=== PATIENT | female | born 1980 | race Caucasian/White ===

== ENCOUNTER 2018-09-05 09:22 | Inpatient (IN) | payer BC ==
[2018-09-05 11:20] VITALS: BMI 22.3
--- NOTE | 2018-09-05 12:05 | HP ---
CIWA Score Nausea/Vomitin Muscle Tremors: 4-Moderate,w/Arms Extend Anxiety: 4-Mod. Anxious/Guarded Agitation: 1-Slight > Activity Paroxysmal Sweats: 1-Minimal Palms Moist Orientation: 1-Uncertain about Date Tacttile Disturbances: 1-Very Mild Itch/Numbness Auditory Disturbances: 0-None Visual Disturbances: 1-Very Mild Sensitivity Headache: 2-Mild CIWA-Ar Total Score: 17 - Admission Criteria OASAS Guidelines: Admission for Medically Managed Detox: Requires at least one of the followin. CIWA greater than 12 2. Seizures within the past 24 hours 3. Delirium tremens within the past 24 hours 4. Hallucinations within the past 24 hours 5. Acute intervention needed for co occurring medical disorder 6. Acute intervention needed for co occurring psychiatric disorder 7. Severe withdrawal that cannot be handled at a lower level of care (continued vomiting, continued diarrhea, abnormal vital signs) requiring intravenous medication and/or fluids 8. Patient presents the following: CIWA greater than 12 Admission Criteria Met: Admission criteria met Admission ROS BHS - HPI Chief Complaint: I want to stop drinking, I'm just tired of it Allergies/Adverse Reactions: Allergies Allergy/AdvReac Type Severity Reaction Status Date / Time No Known Allergies Allergy Verified 09/05/18 10:57 History of Present Illness: 38 yo woman here for detox from alcohol - patient went to [facility] yesterday to detox - she was referred here. While at [facility] she fell when she got up to use the bathroom and she hit her head - she states she had a CT scan there and was told it was fine - small bruise and swelling over left forehead noted - no blurry vision. Patient with history of three detox admissions elsewhere, first time here. She was in detox a year ago at [facility] and then went in 8 months of rehab - came out in May 2018 - started to work and relapsed in June 2018. States she was going to 12 step meetings but relapsed anyway - history of getting Vivitrol injections but she 'just stopped' - interested in restarting it when she is discharged. No seizures but has had syncopal episodes and admits to drinking starting in the morning. Patient with history alcohol related pancreatitis. She also had diabetes which she was told is related to the alcohol use. Exam Limitations: Clinical Condition - Ebola screening Have you traveled outside of the country in the last 21 days: No (N) Have you had contact with anyone from an Ebola affected area: No Do you have a fever: No - Review of Systems Constitutional: Loss of Appetite, Malaise, Changes in sleep, Weakness EENT: reports: No Symptoms Reported Respiratory: reports: No Symptoms reported Cardiac: reports: No Symptoms Reported GI: reports: Nausea, Poor Appetite, Abdominal cramping : reports: Frequency Musculoskeletal: reports: Muscle Pain Integumentary: reports: Bruising, Dryness Neuro: reports: Headache, Tingling, Tremors Endocrine: reports: No Symptoms Reported Hematology: reports: No Symptoms Reported Psychiatric: reports: Mood/Affect Appropiate, Anxious Other Systems: Reviewed and Negative Patient History - Patient Medical History Hx Anemia: No Hx Asthma: No Hx Chronic Obstructive Pulmonary Disease (COPD): No Hx Cancer: No Hx Cardiac Disorders: No Hx Hypertension: No Hx Hypercholesterolemia: No Hx Pacemaker: No HX Cerebrovascular Accident: No Hx Seizures: Yes (10 years ago - alcohol related) Hx Diabetes: No (insulin dependent) Hx Gastrointestinal Disorders: No (pancreatitis - chronic - alcoholic) Hx Liver Disease: No Hx Genitourinary Disorders: No Hx Sexually Transmitted Disorders: No Hx Renal Disease (ESRD): No Hx Thyroid Disease: No Hx Human Immunodeficiency Virus (HIV): No Hx Hepatitis C: No Hx Depression: Yes (with anxiety, on meds, never hospitalized) Hx Suicide Attempt: No (denies) Hx Bipolar Disorder: No Hx Schizophrenia: No - Patient Surgical History Past Surgical History: No - PPD History Previous Implant?: Yes Documented Results: Negative w/o proof Implanted On Prior R Admission?: No PPD to be Administered?: Yes - Reproductive History Patient is a Female of Child Bearing Age (11 -55 yrs old): Yes Patient : No - Smoking Cessation Smoking history: Current some day smoker (one cigarette every two days) Have you smoked in the past 12 months: Yes Hx Chewing Tobacco Use: No Initiated information on smoking cessation: Yes 'Breaking Loose' booklet given: 09/05/18 (give on floor) - Substance & Tx. History Hx Alcohol Use: Yes Hx Substance Use: No Substance Use Type: Alcohol Hx Substance Use Treatment: Yes (detox, rehab) - Substances abused Alcohol Substance route: Oral Frequency: Daily Amount used: 1 pint of vodka Age of first use: 12 Date of last use: 09/04/18 Family Disease History - Family Disease History Family Disease History: Other: Father (living, htn), Mother (living, hx breast cancer), Sister (two - living ) Admission Physical Exam [facility] - Vital Signs Vital Signs: Vital Signs - 24 hr 09/05/18 09/05/18 11:13 11:30 Temperature 98.2 F 98.2 F Pulse Rate 108 H 108 H Respiratory 18 18 Rate Blood Pressure 141/95 141/95 - Physical General Appearance: Yes: Nourished, Appropriately Dressed, Moderate Distress, Thin, Tremorous, Anxious HEENTM: Yes: EOMI, Hearing grossly Normal, Normocephalic, Normal Voice, Pharynx Normal, Other (tongue coated; left forehead slight swelling and echymosis) Respiratory: Yes: Normal Breath Sounds, No Respiratory Distress Neck: Yes: No masses,lesions,Nodules, Supple Breast: Yes: Breast Exam Deferred Cardiology: Yes: Regular Rhythm, Regular Rate Abdominal: Yes: Flat, Soft Genitourinary: Yes: Frequency Back: Yes: Normal Inspection Musculoskeletal: Yes: full range of Motion, Muscle Pain, Other (left knee with two scabs from fall 'a few days ago, I don't remember when') Extremities: Yes: Normal Range of Motion, Tremors, Other (both hands with mild puffiness and erythema - she states this is related to the IV attempts while in the ED) Neurological: Yes: Alert, Normal Mood/Affect, Normal Response, Numbness, Other ( teary, anxious) Integumentary: Yes: Dry, Warm, Other (echymosis left arm - several areas of bruising noted - she states this is related to them trying to get blood from her in ED) Lymphatic: Yes: Within Normal Limits - Diagnostic (1) Alcohol dependence with uncomplicated withdrawal Current Visit: Yes Status: Chronic (2) Minor head trauma Current Visit: Yes Status: Chronic (3) History of chronic pancreatitis Current Visit: Yes Status: Chronic (4) IDDM (insulin dependent diabetes mellitus) Current Visit: Yes Status: Chronic (5) Knee abrasion Current Visit: Yes Status: Acute Qualifiers: Encounter type: subsequent encounter Laterality: left Qualified Code(s): S80.212D - Abrasion, left knee, subsequent encounter Cleared for Admission [facility] - Detox or Rehab [facility] Level of Care: Medically Managed Detox Regimen/Protocol: Librium Breathalyzer - Breathalyzer Breathalyzer: 0.142 Urine Drug Screen - Test Device Lot number: [id number] Expiration date: 05/14/20 - Control Is test valid?: Yes - Results Drug screen NEGATIVE: No Urine drug screen results: BZO-Benzodiazepines Inpatient Rehab Admission - Rehab Decision to Admit Inpatient rehab admission?: No
[2018-09-05] MEDS ORDERED: MENTHOL/PHENOL 1 EACH UD MM PRN (12:12)
[2018-09-05] MEDS ORDERED: MAGNESIUM HYDROX 2400MG/30ML ORAL SUSPENSION 30 ML CUP PO PRN (12:12)
[2018-09-05] MEDS ORDERED: MAGNESIUM CITRATE 300 ML BOTTLE PO PRN (12:12)
[2018-09-05] MEDS ORDERED: ACETAMINOPHEN 325 MG TABLET (FP) PO PRN (12:12)
[2018-09-05] MEDS ORDERED: ONDANSETRON *ODT* 4 MG TABLET SL PRN (12:12)
[2018-09-05] MEDS ORDERED: IBUPROFEN 400 MG TABLET (FP) PO PRN (12:12)
[2018-09-05] MEDS ORDERED: MAG HYDROX/AL HYDROX/SIMETH 30 ML UNIT-DOSE CUP PO PRN (12:12)
[2018-09-05] MEDS ORDERED: chlordiazePOXIDE HCL 25 MG CAPSULE PO ONE (12:30)
[2018-09-05] MEDS: LIPASE/PROTEASE/AMYLASE 6,000 UNIT CAPSULE PO SCH ×2 (15:11→20:31)
[2018-09-05] MEDS: INSULIN (NOVOLOG MIX 70/30) 100 UNITS/ML MDV SQ SCH ×2 (17:16→22:30)
[2018-09-05] MEDS: chlordiazePOXIDE HCL 25 MG CAPSULE PO SCH ×2 (17:16→22:30)
[2018-09-05] MEDS: hydrOXYzine PAMOATE 25 MG CAPSULE (FP) PO PRN (18:37)
[2018-09-05 19:17] LABS: URINE APPEARANCE CLEAR; URINE BILIRUBIN NEGATIVE (NEGATIVE); URINE COLOR YELLOW; URINE GLUCOSE (UA) 3+ (NEGATIVE); URINE KETONE NEGATIVE (NEGATIVE); URINE LEUK ESTERASE NEGATIVE (NEGATIVE); URINE NITRITE NEGATIVE (NEGATIVE); URINE PROTEIN NEGATIVE (NEGATIVE); URINE UROBILINOGEN 0.2 mg/dL (0.2-1.0)
[2018-09-05] MEDS: chlordiazePOXIDE HCL 25 MG CAPSULE PO PRN (19:36)
[2018-09-05] MEDS: THIAMINE HCL 100 MG TABLET (FP) PO SCH (22:30)
[2018-09-05] MEDS: BACITRACIN 0.9 GM PACKET TP SCH (22:30)
[2018-09-05] MEDS: MELATONIN 5 MG TABLETS PO PRN (22:31)
[2018-09-06] MEDS: chlordiazePOXIDE HCL 25 MG CAPSULE PO SCH ×4 (05:52→22:03)
[2018-09-06] MEDS: METHOCARBAMOL 500 MG TABLET PO PRN ×2 (06:53→20:54)
[2018-09-06] MEDS ORDERED: INSULIN (NOVOLOG MIX 70/30) 100 UNITS/ML MDV SQ SCH (07:00)
[2018-09-06] MEDS: LIPASE/PROTEASE/AMYLASE 6,000 UNIT CAPSULE PO SCH ×3 (07:31→16:44)
[2018-09-06] MEDS: INSULIN (NOVOLOG MIX 70/30) 100 UNITS/ML MDV SQ SCH ×3 (07:33→16:46)
--- NOTE | 2018-09-06 09:42 | CONSULT ---
[facility] Psychiatric Consult - Data Date of interview: 09/06/18 Admission source: Admitted as a transfer from [facility] Identifying data: 38 y/o female single, childess, domiciled, unemployed SSI recipient. This is her first Detox admission to [facility] Substance Abuse History: History of alcohol abuse and 2 prior Detox admissions @ [facility], [place] and most recent 2 weeks ago @ [facility]. 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 Medical History: Patient has a amall bruise and swollwn left sided forehead secondary to a fall in [facility]; bathroom last night and was medically cleared. Medical history of IDDM. Chronic pancreatitis secondary to alcohol Psychiatric History: Patient reported a history of depression following the lost of her fiance due to chronic medical illness. She complains of low mood, insomnia and fair appetite and occasional anxiety. She has no prior psychiatric hospitalization and maintained on Effexor, Wellbutrin and Trazodone Physical/Sexual Abuse/Trauma History: Denied Mental Status Exam - Mental Status Exam Alert and Oriented to: Time, Place, Person Cognitive Function: Grossly Intact Patient Appearance: Well Groomed Mood: Sad Affect: Appropriate Patient Behavior: Cooperative Speech Pattern: Clear Voice Loudness: Normal Thought Process: Intact Hallucinations: None Suicidal Ideation: None Homicidal Ideation: None Sleep: Poorly Appetite: Fair Muscle strength/Tone: Normal Gait/Station: Normal Psychiatric Findings - Problem List ([place] 1, 2,3) (1) Depression Current Visit: Yes Status: Acute (2) Anxiety Current Visit: Yes Status: Acute (3) Alcohol dependence with uncomplicated withdrawal Current Visit: Yes Status: Chronic (4) History of chronic pancreatitis Current Visit: Yes Status: Chronic (5) IDDM (insulin dependent diabetes mellitus) Current Visit: Yes Status: Chronic - Initial Treatment Plan Initial Treatment Plan: Continue Detox treament. Psychoeducationn. Bladimir tyler. Trazodone 100 mg po q hs
[2018-09-06] MEDS: PRENATAL VITAMINS W/ FOLIC ACID TABLET (FP) PO SCH (10:28)
[2018-09-06 10:43] LABS: HEMATOCRIT 36.2 % (32.4-45.2); HEMOGLOBIN 12.3 GM/dL (10.7-15.3); MCH 31.3 pg (25.7-33.7); MCHC 34.1 g/dl (32.0-36.0); MEAN CELL VOLUME 91.8 fl (80-96); RBC 3.94 M/mm3 (3.60-5.2); RDW 14.3 % (11.6-15.6); WHITE BLOOD COUNT 5.2 K/mm3 (4.0-10.0)
[2018-09-06 10:48] LABS: ALBUMIN 3.5 g/dl (3.4-5.0); BILIRUBIN,TOTAL 0.9 mg/dL (0.2-1); CALCIUM 8.6 mg/dL (8.5-10.1); CREATININE 0.5 mg/dL (0.55-1.3); POTASSIUM 3.8 mmol/L (3.5-5.1); TOT PROT 6.8 g/dl (6.4-8.2)
[2018-09-06] MEDS: BACITRACIN 0.9 GM PACKET TP SCH ×2 (11:46→22:03)
--- NOTE | 2018-09-06 12:13 | PN ---
S CIWA - CIWA Score Nausea/Vomitin-Mild Nausea/No Vomiting Muscle Tremors: 3 Anxiety: 2 Agitation: 2 Paroxysmal Sweats: No Perspiration Orientation: 0-Oriented Tacttile Disturbances: 0-None Auditory Disturbances: 0-None Visual Disturbances: 0-None Headache: 1-Very Mild CIWA-Ar Total Score: 9 S Progress Note (SOAP) Subjective: ANXIOUS, SHAKY, POOR SLEEP Objective: 09/06/18 12:12 Laboratory Tests 09/05/18 09/05/18 09/05/18 12:16 15:41 16:29 WBC RBC Hgb Hct MCV MCH MCHC RDW MPV Sodium Potassium Chloride Carbon Dioxide Anion Gap BUN Creatinine Est GFR (CKD-EPI)AfAm Est GFR (CKD-EPI)NonAf POC Glucometer 289 336 Random Glucose Calcium Total Bilirubin AST ALT Alkaline Phosphatase Total Protein Albumin Lipase Urine Color Yellow Urine Appearance Clear Urine pH 6.0 Ur Specific [place] 1.033 Urine Protein Negative Urine Glucose (UA) 3+ H Urine Ketones Negative Urine Blood Negative Urine Nitrite Negative Urine Bilirubin Negative Urine Urobilinogen 0.2 Ur Leukocyte Esterase Negative 09/05/18 09/06/18 09/06/18 20:55 05:54 08:00 WBC 5.2 RBC 3.94 Hgb 12.3 Hct 36.2 MCV 91.8 MCH 31.3 MCHC 34.1 RDW 14.3 MPV 10.0 Sodium Potassium Chloride Carbon Dioxide Anion Gap BUN Creatinine Est GFR (CKD-EPI)AfAm Est GFR (CKD-EPI)NonAf POC Glucometer 264 85 Random Glucose Calcium Total Bilirubin AST ALT Alkaline Phosphatase Total Protein Albumin Lipase Urine Color Urine Appearance Urine pH Ur Specific [place] Urine Protein Urine Glucose (UA) Urine Ketones Urine Blood Urine Nitrite Urine Bilirubin Urine Urobilinogen Ur Leukocyte Esterase 09/06/18 09/06/18 08:00 11:48 WBC RBC Hgb Hct MCV MCH MCHC RDW MPV Sodium 137 Potassium 3.8 Chloride 101 Carbon Dioxide 28 Anion Gap 9 BUN 7.0 Creatinine 0.5 L Est GFR (CKD-EPI)AfAm 140.31 Est GFR (CKD-EPI)NonAf 121.06 POC Glucometer 229 Random Glucose 125 H Calcium 8.6 Total Bilirubin 0.9 AST 32 ALT 36 Alkaline Phosphatase 80 Total Protein 6.8 Albumin 3.5 Lipase 57 L Urine Color Urine Appearance Urine pH Ur Specific [place] Urine Protein Urine Glucose (UA) Urine Ketones Urine Blood Urine Nitrite Urine Bilirubin Urine Urobilinogen Ur Leukocyte Esterase Vital Signs - 24 hr 09/05/18 09/05/18 09/05/18 13:00 13:30 14:00 Temperature Pulse Rate 96 H 102 H 106 H Respiratory 18 18 Rate Blood Pressure 09/05/18 09/05/18 09/05/18 14:10 14:30 15:00 Temperature 97 F L Pulse Rate 96 H 106 H 108 H Respiratory 18 18 18 Rate Blood Pressure 130/92 09/05/18 09/05/18 09/05/18 15:30 16:30 17:00 Temperature Pulse Rate 100 H 98 H 85 Respiratory 18 16 16 Rate Blood Pressure 09/05/18 09/05/18 09/05/18 17:30 18:00 18:30 Temperature 97.4 F L Pulse Rate 78 97 H 93 H Respiratory 16 16 16 Rate Blood Pressure 136/89 09/05/18 09/05/18 09/05/18 19:00 19:30 20:00 Temperature Pulse Rate 88 92 H 103 H Respiratory 16 16 16 Rate Blood Pressure 09/05/18 09/05/18 09/05/18 20:30 21:00 21:30 Temperature Pulse Rate 106 H 102 H 98 H Respiratory 16 16 16 Rate Blood Pressure 09/05/18 09/05/18 09/05/18 22:00 22:30 22:51 Temperature 97.3 F L Pulse Rate 100 H 96 H 106 H Respiratory 16 16 16 Rate Blood Pressure 138/88 09/05/18 09/05/18 09/06/18 23:00 23:30 00:00 Temperature Pulse Rate 88 90 87 Respiratory 16 16 16 Rate Blood Pressure 09/06/18 09/06/18 09/06/18 00:30 01:00 01:30 Temperature Pulse Rate 87 82 79 Respiratory 18 18 18 Rate Blood Pressure 09/06/18 09/06/18 09/06/18 02:00 02:30 03:00 Temperature Pulse Rate 73 70 90 Respiratory 18 18 18 Rate Blood Pressure 09/06/18 09/06/18 09/06/18 03:30 04:00 04:30 Temperature Pulse Rate 90 90 94 H Respiratory 18 18 18 Rate Blood Pressure 09/06/18 09/06/18 09/06/18 05:00 05:30 06:00 Temperature Pulse Rate 95 H 92 H 90 Respiratory 18 18 18 Rate Blood Pressure 09/06/18 09/06/18 09/06/18 06:30 06:47 07:00 Temperature 97.7 F Pulse Rate 65 65 87 Respiratory 18 18 18 Rate Blood Pressure 120/72 09/06/18 09/06/18 09/06/18 07:30 08:00 09:00 Temperature Pulse Rate 89 89 79 Respiratory 18 18 18 Rate Blood Pressure 09/06/18 09/06/18 09:30 09:35 Temperature 98.3 F Pulse Rate 82 79 Respiratory 18 18 Rate Blood Pressure 128/96 AMBULATING ALERT ORIENTED Assessment: 09/06/18 12:12 ACUTE WITHDRAWAL DM MODERATE CONTROL Plan: CONTINUE DETOX PROTOCOL CONTINUE GLYCEMIC MONITORING AND CONTROL
[2018-09-06 12:18] LABS: PLATELET COUNT 176 K/MM3 (134-434)
--- NOTE | 2018-09-06 13:00 | EKG ---
Test Reason : Blood Pressure : / mmHG Vent. Rate : 090 BPM Atrial Rate : 090 BPM P-R Int : 154 ms QRS Dur : 094 ms QT Int : 382 ms P-R-T Axes : 063 035 058 degrees QTc Int : 467 ms NORMAL SINUS RHYTHM INCOMPLETE RBBB NO PREVIOUS ECGS AVAILABLE Confirmed by GISSELL GIVENS MD ([id number]) on 09/06/2018 1:00:09 PM Referred By: Confirmed By:GISSELL GIVENS MD
[2018-09-06] MEDS: chlordiazePOXIDE HCL 25 MG CAPSULE PO PRN ×2 (15:49→19:30)
[2018-09-06] MEDS: BISMUTH SUBSALICYLATE 524 MG/30 ML UD PO PRN (19:22)
[2018-09-06] MEDS: traZODone HCL 50 MG TABLET (FP) PO SCH (22:03)
[2018-09-06] MEDS: THIAMINE HCL 100 MG TABLET (FP) PO SCH (22:03)
[2018-09-06] MEDS: MELATONIN 5 MG TABLETS PO PRN (22:05)
[2018-09-07] MEDS: hydrOXYzine PAMOATE 25 MG CAPSULE (FP) PO PRN (00:05)
[2018-09-07] MEDS: chlordiazePOXIDE HCL 25 MG CAPSULE PO PRN ×2 (01:51→09:15)
[2018-09-07] MEDS: chlordiazePOXIDE HCL 25 MG CAPSULE PO SCH ×2 (05:38→11:11)
[2018-09-07] MEDS: INSULIN (NOVOLOG MIX 70/30) 100 UNITS/ML MDV SQ SCH ×2 (07:45→16:40)
[2018-09-07] MEDS: LIPASE/PROTEASE/AMYLASE 6,000 UNIT CAPSULE PO SCH ×3 (07:45→16:37)
[2018-09-07] MEDS: PRENATAL VITAMINS W/ FOLIC ACID TABLET (FP) PO SCH (11:11)
[2018-09-07] MEDS: BACITRACIN 0.9 GM PACKET TP SCH ×2 (11:11→22:00)
--- NOTE | 2018-09-07 14:09 | PN ---
S CIWA - CIWA Score Nausea/Vomitin Muscle Tremors: None Anxiety: 5 Agitation: 4-Moderately Restless Paroxysmal Sweats: No Perspiration Orientation: 0-Oriented Tacttile Disturbances: 1-Very Mild Itch/Numbness Auditory Disturbances: 0-None Visual Disturbances: 1-Very Mild Sensitivity Headache: 0-None Present CIWA-Ar Total Score: 16 BHS Progress Note (SOAP) Subjective: Interrupted Sleep, Anxious, Vomiting. Objective: PATIENT A & O X 3, OBSERVED AMBULATING ON UNIT UNASSISTED. IN NO ACUTE DISTRESS. 09/07/18 14:06 Vital Signs Temperature 97.6 F 09/07/18 13:25 Pulse Rate 102 H 09/07/18 13:25 Respiratory Rate 16 09/07/18 13:25 Blood Pressure 116/83 09/07/18 13:25 O2 Sat by Pulse Oximetry (%) Laboratory Tests 09/05/18 09/05/18 09/05/18 12:16 15:41 16:29 WBC RBC Hgb Hct MCV MCH MCHC RDW Plt Count MPV Sodium Potassium Chloride Carbon Dioxide Anion Gap BUN Creatinine Est GFR (CKD-EPI)AfAm Est GFR (CKD-EPI)NonAf POC Glucometer 289 336 Random Glucose Calcium Total Bilirubin AST ALT Alkaline Phosphatase Total Protein Albumin Lipase Urine Color Yellow Urine Appearance Clear Urine pH 6.0 Ur Specific [place] 1.033 Urine Protein Negative Urine Glucose (UA) 3+ H Urine Ketones Negative Urine Blood Negative Urine Nitrite Negative Urine Bilirubin Negative Urine Urobilinogen 0.2 Ur Leukocyte Esterase Negative RPR Titer 09/05/18 09/06/18 09/06/18 20:55 05:54 08:00 WBC 5.2 RBC 3.94 Hgb 12.3 Hct 36.2 MCV 91.8 MCH 31.3 MCHC 34.1 RDW 14.3 Plt Count 176 MPV 10.0 Sodium Potassium Chloride Carbon Dioxide Anion Gap BUN Creatinine Est GFR (CKD-EPI)AfAm Est GFR (CKD-EPI)NonAf POC Glucometer 264 85 Random Glucose Calcium Total Bilirubin AST ALT Alkaline Phosphatase Total Protein Albumin Lipase Urine Color Urine Appearance Urine pH Ur Specific [place] Urine Protein Urine Glucose (UA) Urine Ketones Urine Blood Urine Nitrite Urine Bilirubin Urine Urobilinogen Ur Leukocyte Esterase RPR Titer 09/06/18 09/06/18 09/06/18 08:00 08:00 11:48 WBC RBC Hgb Hct MCV MCH MCHC RDW Plt Count MPV Sodium 137 Potassium 3.8 Chloride 101 Carbon Dioxide 28 Anion Gap 9 BUN 7.0 Creatinine 0.5 L Est GFR (CKD-EPI)AfAm 140.31 Est GFR (CKD-EPI)NonAf 121.06 POC Glucometer 229 Random Glucose 125 H Calcium 8.6 Total Bilirubin 0.9 AST 32 ALT 36 Alkaline Phosphatase 80 Total Protein 6.8 Albumin 3.5 Lipase 57 L Urine Color Urine Appearance Urine pH Ur Specific [place] Urine Protein Urine Glucose (UA) Urine Ketones Urine Blood Urine Nitrite Urine Bilirubin Urine Urobilinogen Ur Leukocyte Esterase RPR Titer Nonreactive 09/06/18 09/07/18 09/07/18 16:25 05:37 11:17 WBC RBC Hgb Hct MCV MCH MCHC RDW Plt Count MPV Sodium Potassium Chloride Carbon Dioxide Anion Gap BUN Creatinine Est GFR (CKD-EPI)AfAm Est GFR (CKD-EPI)NonAf POC Glucometer 294 320 324 Random Glucose Calcium Total Bilirubin AST ALT Alkaline Phosphatase Total Protein Albumin Lipase Urine Color Urine Appearance Urine pH Ur Specific [place] Urine Protein Urine Glucose (UA) Urine Ketones Urine Blood Urine Nitrite Urine Bilirubin Urine Urobilinogen Ur Leukocyte Esterase RPR Titer LABS NOTED. Assessment: 09/07/18 14:06 WITHDRAWAL SYMPTOMS. HYPERGLYCEMIA. 09/07/18 14:09 Plan: CONTINUE DETOX. INCREASE DAILY PO WATER INTAKE. PRN ZOFRAN SL FOR NAUSEA / VOMITING. CONTINUE TO MONITOR BLOOD GLUCOSE. PATIENT REPORTS THAT SHE ONLY TAKES 70/30 INSULIN FOR TREATMENT OF INSULIN-DEPENDENT DIABETES MELLITUS AND THAT SHE DOES NOT TAKE ANY OTHER TYPE OF INSULIN OR ANY ORAL ANTIDIABETIC MEDICATION AT HOME.
[2018-09-07] MEDS: chlordiazePOXIDE HCL 10 MG CAPSULE PO SCH ×2 (16:40→22:00)
[2018-09-07] MEDS ORDERED: chlordiazePOXIDE HCL 10 MG CAPSULE PO PRN (17:00)
[2018-09-07] MEDS: BISMUTH SUBSALICYLATE 524 MG/30 ML UD PO PRN (18:10)
[2018-09-07] MEDS: THIAMINE HCL 100 MG TABLET (FP) PO SCH (21:26)
[2018-09-07] MEDS: traZODone HCL 50 MG TABLET (FP) PO SCH (21:27)
[2018-09-07] MEDS: MELATONIN 5 MG TABLETS PO PRN (21:30)
[2018-09-08] MEDS: chlordiazePOXIDE HCL 10 MG CAPSULE PO SCH ×3 (05:31→16:48)
[2018-09-08] MEDS: LIPASE/PROTEASE/AMYLASE 6,000 UNIT CAPSULE PO SCH ×3 (07:28→16:47)
[2018-09-08] MEDS: INSULIN (NOVOLOG MIX 70/30) 100 UNITS/ML MDV SQ SCH ×2 (07:30→16:47)
[2018-09-08] MEDS ORDERED: BENZOCAINE 20 % GEL TUBE MM PRN (09:35)
[2018-09-08] MEDS: PRENATAL VITAMINS W/ FOLIC ACID TABLET (FP) PO SCH (10:18)
[2018-09-08] MEDS: BACITRACIN 0.9 GM PACKET TP SCH ×2 (10:18→22:22)
--- NOTE | 2018-09-08 15:31 | PN ---
Psychiatric Progress Note Vital Signs: Vital Signs Period Temp Pulse Resp BP Sys/Ferrer Pulse Ox Last 24 Hr 97.6 F-97.9 F 75-96 18-18 97-116/52-71 Date of Session: 09/08/18 Chief Complaint:: " I need to be on 200 mg of trazodone ". HPI: Called to reconsult on this patient, seen on 09/06/[address] Mccord, for complaint of refractory insomnia. Hospital course remains otherwise unremarkable. Noted history of depression + anxiety. External pharmacy activity shows refills for wellbutrin and venlafaxine ER until 08/10/18 at [facility] # [id number]. Non -adherent to medications in the community. ROS: Unremarkable. Current Medications: Active Medications Generic Name Dose Route Start Last Admin Trade Name Freq PRN Reason Stop Dose Admin Acetaminophen 650 mg 09/05/18 12:12 09/06/18 06:54 Tylenol - PO 650 mg Q6H PRN Administration PAIN LEVEL 4 - 6 Al Hydroxide/Mg Hydroxide 30 ml 09/05/18 12:12 Mylanta Oral Suspension - PO Q6H PRN DYSPEPSIA Bacitracin 0.9 gm 09/05/18 22:00 09/08/18 10:18 Bacitracin - TP 0.9 gm BID CHIP Administration Benzocaine 1 applic 09/08/18 09:35 09/08/18 10:19 Anbesol - MM 1 applic Q6H PRN Administration ORAL PAIN/MOUTH SORES Bismuth Subsalicylate 524 mg 09/05/18 12:12 09/07/18 18:10 Pepto-Bismol - PO 524 mg Q1H PRN Administration DIARRHEA Chlordiazepoxide HCl 10 mg 09/08/18 17:00 Librium - PO 09/09/18 17:01 Q12H CHIP Chlordiazepoxide HCl 10 mg 09/07/18 17:00 09/07/18 19:08 Librium - PO 09/08/18 17:00 10 mg Q4H PRN Administration WITHDRAWAL(CONT SUBST) Eucalyptus/Menthol/Phenol/Sorbitol 1 each 09/05/18 12:12 Cepastat Lozenge - MM 09/11/18 12:12 Q4H PRN SORE THROAT Hydroxyzine Pamoate 25 mg 09/05/18 12:12 09/07/18 00:05 Vistaril - PO 09/11/18 12:12 25 mg Q6H PRN Administration For Anxiety Ibuprofen 400 mg 09/05/18 12:12 Motrin - PO Q6H PRN PAIN LEVEL 1 - 3 Insulin Aspart 7 units 09/06/18 16:30 09/08/18 07:30 Novolog Mix 70/30 Vial SQ 7 units BIDAC CHIP Administration Magnesium Citrate 300 ml 09/05/18 12:12 Citroma - PO Q48H PRN CONSTIPATION Magnesium Hydroxide 30 ml 09/05/18 12:12 Milk Of Magnesia - PO PRN PRN CONSTIPATION Melatonin 5 mg 09/05/18 12:12 09/07/18 21:30 Melatonin PO 5 mg HS PRN Administration INSOMNIA Methocarbamol 500 mg 09/05/18 12:12 09/06/18 20:54 Robaxin - PO 09/11/18 12:12 500 mg Q6H PRN Administration MUSCLE SPASMS Ondansetron HCl 4 mg 09/05/18 12:12 Zofran Odt - SL 09/11/18 12:12 Q12H PRN Nausea/Vomiting Pancrelipase 1 cap 09/05/18 12:15 09/08/18 11:[address] 6,000 Units Capsule PO 1 cap TIDCM CHIP Administration Multivit/Folic Acid/Iron 1 tab 09/06/18 10:00 09/08/18 10:18 Vitamins (Sjr) - PO 1 tab DAILY CHIP Administration Thiamine HCl 100 mg 09/05/18 22:00 09/07/18 21:26 Vitamin B1 - PO 100 mg HS CHIP Administration Trazodone HCl 150 mg 09/08/18 22:00 Desyrel - PO HS [facility] Medication(s) Change(s): Trazodone in raised to 150 mg po hs. Side effects/ benefits discussed with the patient. She agrees to this plan of care. Current Side Effect: No Lab tests ordered: No Lab tests reviewed: Yes Provider note:: Chart reviewed. Met with the patient. Doing well except for complaint of insomnia. Want trazodone dose to be raised to 200 mg/hs. Patient is observed as well groomed, active, visibel on the unit and cooperative. No evidence of distress. Stable mental status. Principles of sleep hygiene are discussed. Uneventful detoxification treatment. Total face to face time:: 25 Mental Status Exam - Mental Status Exam Alert and Oriented to: Time, Place, Person Cognitive Function: Good Patient Appearance: Well Groomed Mood: Hopeful, Euthymic Affect: Appropriate, Normal Range Patient Behavior: Appropriate, Cooperative Speech Pattern: Clear, Appropriate Voice Loudness: Normal Thought Process: Intact, Goal Oriented Thought Disorder: Not Present Hallucinations: Denies Suicidal Ideation: Denies Homicidal Ideation: Denies Insight/Judgement: Fair Sleep: Poorly, Difficulty falling asleep Appetite: Good Gait/Station: Normal Psychiatric Treatment Plan - Problem List (1) Alcohol dependence with uncomplicated withdrawal Current Visit: Yes Comment: . (2) Insomnia Current Visit: Yes Comment: . (3) Substance induced mood disorder Current Visit: Yes Comment: .
--- NOTE | 2018-09-08 16:15 | PN ---
S CIWA - CIWA Score Nausea/Vomitin Muscle Tremors: None Anxiety: 4-Mod. Anxious/Guarded Agitation: 3 Paroxysmal Sweats: No Perspiration Orientation: 0-Oriented Tacttile Disturbances: 1-Very Mild Itch/Numbness Auditory Disturbances: 0-None Visual Disturbances: 1-Very Mild Sensitivity Headache: 0-None Present CIWA-Ar Total Score: 11 BHS Progress Note (SOAP) Subjective: Body Aches, Anxious, Restless, Nausea. Objective: PATIENT A & O X 3, OBSERVED AMBULATING ON UNIT UNASSISTED. IN NO ACUTE DISTRESS. 09/08/18 16:16 Vital Signs Temperature 97.7 F 09/08/18 13:37 Pulse Rate 93 H 09/08/18 13:37 Respiratory Rate 18 09/08/18 13:37 Blood Pressure 116/69 09/08/18 13:37 O2 Sat by Pulse Oximetry (%) Laboratory Tests 09/05/18 09/05/18 09/05/18 11:30 12:16 15:41 WBC RBC Hgb Hct MCV MCH MCHC RDW Plt Count MPV Sodium Potassium Chloride Carbon Dioxide Anion Gap BUN Creatinine Est GFR (CKD-EPI)AfAm Est GFR (CKD-EPI)NonAf POC Glucometer 289 Random Glucose Calcium Total Bilirubin AST ALT Alkaline Phosphatase Total Protein Albumin Lipase Urine Color Yellow Urine Appearance Clear Urine pH 6.0 Ur Specific [place] 1.033 Urine Protein Negative Urine Glucose (UA) 3+ H Urine Ketones Negative Urine Blood Negative Urine Nitrite Negative Urine Bilirubin Negative Urine Urobilinogen 0.2 Ur Leukocyte Esterase Negative POC Urine HCG, Qual Negative RPR Titer 09/05/18 09/05/18 09/06/18 16:29 20:55 05:54 WBC RBC Hgb Hct MCV MCH MCHC RDW Plt Count MPV Sodium Potassium Chloride Carbon Dioxide Anion Gap BUN Creatinine Est GFR (CKD-EPI)AfAm Est GFR (CKD-EPI)NonAf POC Glucometer [phone] Random Glucose Calcium Total Bilirubin AST ALT Alkaline Phosphatase Total Protein Albumin Lipase Urine Color Urine Appearance Urine pH Ur Specific [place] Urine Protein Urine Glucose (UA) Urine Ketones Urine Blood Urine Nitrite Urine Bilirubin Urine Urobilinogen Ur Leukocyte Esterase POC Urine HCG, Qual RPR Titer 09/06/18 09/06/18 09/06/18 08:00 08:00 08:00 WBC 5.2 RBC 3.94 Hgb 12.3 Hct 36.2 MCV 91.8 MCH 31.3 MCHC 34.1 RDW 14.3 Plt Count 176 MPV 10.0 Sodium 137 Potassium 3.8 Chloride 101 Carbon Dioxide 28 Anion Gap 9 BUN 7.0 Creatinine 0.5 L Est GFR (CKD-EPI)AfAm 140.31 Est GFR (CKD-EPI)NonAf 121.06 POC Glucometer Random Glucose 125 H Calcium 8.6 Total Bilirubin 0.9 AST 32 ALT 36 Alkaline Phosphatase 80 Total Protein 6.8 Albumin 3.5 Lipase 57 L Urine Color Urine Appearance Urine pH Ur Specific [place] Urine Protein Urine Glucose (UA) Urine Ketones Urine Blood Urine Nitrite Urine Bilirubin Urine Urobilinogen Ur Leukocyte Esterase POC Urine HCG, Qual RPR Titer Nonreactive 09/06/18 09/06/18 09/07/18 11:48 16:25 05:37 WBC RBC Hgb Hct MCV MCH MCHC RDW Plt Count MPV Sodium Potassium Chloride Carbon Dioxide Anion Gap BUN Creatinine Est GFR (CKD-EPI)AfAm Est GFR (CKD-EPI)NonAf POC Glucometer [phone] Random Glucose Calcium Total Bilirubin AST ALT Alkaline Phosphatase Total Protein Albumin Lipase Urine Color Urine Appearance Urine pH Ur Specific [place] Urine Protein Urine Glucose (UA) Urine Ketones Urine Blood Urine Nitrite Urine Bilirubin Urine Urobilinogen Ur Leukocyte Esterase POC Urine HCG, Qual RPR Titer 09/07/18 09/07/18 09/07/18 11:17 16:24 21:19 WBC RBC Hgb Hct MCV MCH MCHC RDW Plt Count MPV Sodium Potassium Chloride Carbon Dioxide Anion Gap BUN Creatinine Est GFR (CKD-EPI)AfAm Est GFR (CKD-EPI)NonAf POC Glucometer [phone] Random Glucose Calcium Total Bilirubin AST ALT Alkaline Phosphatase Total Protein Albumin Lipase Urine Color Urine Appearance Urine pH Ur Specific [place] Urine Protein Urine Glucose (UA) Urine Ketones Urine Blood Urine Nitrite Urine Bilirubin Urine Urobilinogen Ur Leukocyte Esterase POC Urine HCG, Qual RPR Titer 09/08/18 09/08/18 05:30 11:15 WBC RBC Hgb Hct MCV MCH MCHC RDW Plt Count MPV Sodium Potassium Chloride Carbon Dioxide Anion Gap BUN Creatinine Est GFR (CKD-EPI)AfAm Est GFR (CKD-EPI)NonAf POC Glucometer 338 166 Random Glucose Calcium Total Bilirubin AST ALT Alkaline Phosphatase Total Protein Albumin Lipase Urine Color Urine Appearance Urine pH Ur Specific [place] Urine Protein Urine Glucose (UA) Urine Ketones Urine Blood Urine Nitrite Urine Bilirubin Urine Urobilinogen Ur Leukocyte Esterase POC Urine HCG, Qual RPR Titer LABS NOTED. Assessment: 09/08/18 16:16 WITHDRAWAL SYMPTOMS. Plan: CONTINUE DETOX. INCREASE DAILY PO WATER INTAKE. PRN ZOFRAN SL FOR NAUSEA.
[2018-09-08] MEDS ORDERED: traZODone HCL 50 MG TABLET (FP) PO SCH (22:00)
[2018-09-08] MEDS: THIAMINE HCL 100 MG TABLET (FP) PO SCH (22:20)
[2018-09-08] MEDS: MELATONIN 5 MG TABLETS PO PRN (22:20)
[2018-09-08] MEDS: hydrOXYzine PAMOATE 25 MG CAPSULE (FP) PO PRN (22:21)
[2018-09-09] MEDS: chlordiazePOXIDE HCL 10 MG CAPSULE PO SCH (05:49)
[2018-09-09 06:17] VITALS: BP 105/62; PULSE 65; TEMP 97.8
[2018-09-09] MEDS: INSULIN (NOVOLOG MIX 70/30) 100 UNITS/ML MDV SQ SCH (07:37)
[2018-09-09] MEDS: LIPASE/PROTEASE/AMYLASE 6,000 UNIT CAPSULE PO SCH (07:37)
--- NOTE | 2018-09-09 17:09 | DS ---
[facility] Detox Discharge Summary Admission Date: 09/05/18 Discharge Date: 09/09/18 - History Present History: Alcohol Dependence Additional Comments: PATIENT GOING HOME. PATIENT REFERRED TO THE [facility] ([place], [place]) FOR AFTERCARE. PATIENT DECLINED OFFER OF MEDICATION PRESCRIPTION FOR HOME MEDICATION AT TIME OF DISCHARGE FROM DETOX, NOTING THAT HE CURRENTLY HAS ADEQUATE SUPPLIES OF ALL PRESCRIBED HOME MEDICATIONS WITH HER BELONGINGS. PATIENT WAS DISCHARGED FROM DETOX UNIT IN STABLE MEDICAL CONDITION. Pertinent Past History: DM, History Of (Alcohol-Related Pancreatitis), History Of Seizures (Alcohol- Related), Depression, Anxiety, History Of Head Trauma, History Of Head Trauma ( Patient was Medically Evaluated at [facility] for this condition prior to admission to Detox), Knee Abrasion. - Physical Exam Results Vital Signs: Vital Signs Temperature 97.8 F 09/09/18 06:17 Pulse Rate 65 09/09/18 06:17 Respiratory Rate 18 09/09/18 06:17 Blood Pressure 105/62 09/09/18 06:17 O2 Sat by Pulse Oximetry (%) Pertinent Admission Physical Exam Findings: WITHDRAWAL SYMPTOMS. Laboratory Tests 09/05/18 09/05/18 09/05/18 11:30 12:16 15:41 WBC RBC Hgb Hct MCV MCH MCHC RDW Plt Count MPV Sodium Potassium Chloride Carbon Dioxide Anion Gap BUN Creatinine Est GFR (CKD-EPI)AfAm Est GFR (CKD-EPI)NonAf POC Glucometer 289 Random Glucose Calcium Total Bilirubin AST ALT Alkaline Phosphatase Total Protein Albumin Lipase Urine Color Yellow Urine Appearance Clear Urine pH 6.0 Ur Specific [place] 1.033 Urine Protein Negative Urine Glucose (UA) 3+ H Urine Ketones Negative Urine Blood Negative Urine Nitrite Negative Urine Bilirubin Negative Urine Urobilinogen 0.2 Ur Leukocyte Esterase Negative POC Urine HCG, Qual Negative RPR Titer 09/05/18 09/05/18 09/06/18 16:29 20:55 05:54 WBC RBC Hgb Hct MCV MCH MCHC RDW Plt Count MPV Sodium Potassium Chloride Carbon Dioxide Anion Gap BUN Creatinine Est GFR (CKD-EPI)AfAm Est GFR (CKD-EPI)NonAf POC Glucometer [phone] Random Glucose Calcium Total Bilirubin AST ALT Alkaline Phosphatase Total Protein Albumin Lipase Urine Color Urine Appearance Urine pH Ur Specific [place] Urine Protein Urine Glucose (UA) Urine Ketones Urine Blood Urine Nitrite Urine Bilirubin Urine Urobilinogen Ur Leukocyte Esterase POC Urine HCG, Qual RPR Titer 09/06/18 09/06/18 09/06/18 08:00 08:00 08:00 WBC 5.2 RBC 3.94 Hgb 12.3 Hct 36.2 MCV 91.8 MCH 31.3 MCHC 34.1 RDW 14.3 Plt Count 176 MPV 10.0 Sodium 137 Potassium 3.8 Chloride 101 Carbon Dioxide 28 Anion Gap 9 BUN 7.0 Creatinine 0.5 L Est GFR (CKD-EPI)AfAm 140.31 Est GFR (CKD-EPI)NonAf 121.06 POC Glucometer Random Glucose 125 H Calcium 8.6 Total Bilirubin 0.9 AST 32 ALT 36 Alkaline Phosphatase 80 Total Protein 6.8 Albumin 3.5 Lipase 57 L Urine Color Urine Appearance Urine pH Ur Specific [place] Urine Protein Urine Glucose (UA) Urine Ketones Urine Blood Urine Nitrite Urine Bilirubin Urine Urobilinogen Ur Leukocyte Esterase POC Urine HCG, Qual RPR Titer Nonreactive 09/06/18 09/06/18 09/07/18 11:48 16:25 05:37 WBC RBC Hgb Hct MCV MCH MCHC RDW Plt Count MPV Sodium Potassium Chloride Carbon Dioxide Anion Gap BUN Creatinine Est GFR (CKD-EPI)AfAm Est GFR (CKD-EPI)NonAf POC Glucometer [phone] Random Glucose Calcium Total Bilirubin AST ALT Alkaline Phosphatase Total Protein Albumin Lipase Urine Color Urine Appearance Urine pH Ur Specific [place] Urine Protein Urine Glucose (UA) Urine Ketones Urine Blood Urine Nitrite Urine Bilirubin Urine Urobilinogen Ur Leukocyte Esterase POC Urine HCG, Qual RPR Titer 09/07/18 09/07/18 09/07/18 11:17 16:24 21:19 WBC RBC Hgb Hct MCV MCH MCHC RDW Plt Count MPV Sodium Potassium Chloride Carbon Dioxide Anion Gap BUN Creatinine Est GFR (CKD-EPI)AfAm Est GFR (CKD-EPI)NonAf POC Glucometer [phone] Random Glucose Calcium Total Bilirubin AST ALT Alkaline Phosphatase Total Protein Albumin Lipase Urine Color Urine Appearance Urine pH Ur Specific [place] Urine Protein Urine Glucose (UA) Urine Ketones Urine Blood Urine Nitrite Urine Bilirubin Urine Urobilinogen Ur Leukocyte Esterase POC Urine HCG, Qual RPR Titer 09/08/18 09/08/18 09/08/18 05:30 11:15 16:18 WBC RBC Hgb Hct MCV MCH MCHC RDW Plt Count MPV Sodium Potassium Chloride Carbon Dioxide Anion Gap BUN Creatinine Est GFR (CKD-EPI)AfAm Est GFR (CKD-EPI)NonAf POC Glucometer [phone] Random Glucose Calcium Total Bilirubin AST ALT Alkaline Phosphatase Total Protein Albumin Lipase Urine Color Urine Appearance Urine pH Ur Specific [place] Urine Protein Urine Glucose (UA) Urine Ketones Urine Blood Urine Nitrite Urine Bilirubin Urine Urobilinogen Ur Leukocyte Esterase POC Urine HCG, Qual RPR Titer 09/09/18 05:48 WBC RBC Hgb Hct MCV MCH MCHC RDW Plt Count MPV Sodium Potassium Chloride Carbon Dioxide Anion Gap BUN Creatinine Est GFR (CKD-EPI)AfAm Est GFR (CKD-EPI)NonAf POC Glucometer 247 Random Glucose Calcium Total Bilirubin AST ALT Alkaline Phosphatase Total Protein Albumin Lipase Urine Color Urine Appearance Urine pH Ur Specific [place] Urine Protein Urine Glucose (UA) Urine Ketones Urine Blood Urine Nitrite Urine Bilirubin Urine Urobilinogen Ur Leukocyte Esterase POC Urine HCG, Qual RPR Titer LABS NOTED. - Treatment Hospital Course: Detox Protocol Followed, Detoxed Safely, Responded well, Discharged Condition Good Patient has Accepted a Rehab Referral to: PT. REFERRED TO [facility] ([place], [place] - Medication Discharge Medications: Ambulatory Orders Bupropion HCl [Wellbutrin Xl -] 300 mg PO DAILY 09/05/18 Insulin (Novolog 70/30) [Novolog Mix 70/30 Vial] 7 units SQ ACBK 09/05/18 Insulin (Novolog 70/30) [Novolog Mix 70/30 Vial] 7 units SQ ACHS 09/05/18 Lipase/Protease/Amylase [Creon Dr 6,000 Units Capsule] 1 cap PO TIDCM 09/05/18 [place] Multiplus 09/05/18 Venlafaxine HCl ER [Effexor Xr -] 225 mg PO DAILY 09/05/18 traZODone HCL [Trazodone HCl] 100 mg PO HS 09/05/18 - Diagnosis (1) Knee abrasion Status: Acute Qualifiers: Encounter type: subsequent encounter Laterality: left Qualified Code(s): S80.212D - Abrasion, left knee, subsequent encounter (2) Alcohol dependence with uncomplicated withdrawal Status: Chronic (3) History of chronic pancreatitis Status: Chronic (4) IDDM (insulin dependent diabetes mellitus) Status: Chronic (5) Minor head trauma Status: Chronic (6) Anxiety Status: Acute (7) Depression Status: Acute Qualifiers: Depression Type: unspecified Qualified Code(s): F32.9 - Major depressive disorder, single episode, unspecified (8) Insomnia Status: Acute Qualifiers: Insomnia type: unspecified Qualified Code(s): G47.00 - Insomnia, unspecified (9) Substance induced mood disorder Status: Acute - AMA Did Patient Leave Against Medical Advice: No
--- NOTE | 2018-09-09 18:49 | PN ---
S Progress Note Note: Psychiatry Attending's note : Patient discharged today. Script for trazodone 100 mg po hs tab#30. Sent electronically to [facility] # [id number]. At [phone]. Spoke to pharmacist.
== END 2018-09-09 08:45 | disposition home or self-care (01) | DRG 775 ==
LOC: YASAS 09:22 → Y3N 12:21
PROVIDERS: ADMIT Surgery; ATTEND Surgery
PROC: HZ2ZZZZ Detoxification Services for Substance Abuse Treatment (ICD-10-PCS; principal; 2018-09-05)
DX: F10.230 Alcohol dependence with withdrawal, uncomplicated (principal); F32.9 Major depressive disorder, single episode, unspecified; F41.9 Anxiety disorder, unspecified; F19.24 Other psychoactive substance dependence with psychoactive substance-induced mood disorder; E11.65 Type 2 diabetes mellitus with hyperglycemia; G47.00 Insomnia, unspecified; S00.83XD Contusion of other part of head, subsequent encounter; W18.39XD Other fall on same level, subsequent encounter; Z72.0 Tobacco use; Z87.19 Personal history of other diseases of the digestive system; Z79.4 Long term (current) use of insulin; Z86.69 Personal history of other diseases of the nervous system and sense organs
CPT/HCPCS: 36415; 80053; 81003; 81025; 82962; 83690; 85027; 86593; 93005; 93010